=== PATIENT | male | born 1990 | race Caucasian/White ===

== ENCOUNTER 2020-06-20 08:39 | Emergency (ER) | payer SELFPAY ==
[2020-06-20] VITALS (19 sets, daily range): BP systolic 155–184; BP diastolic 64–125; PULSE 94; RESP 18; TEMP 36.5; O2SAT 96–100
--- NOTE | ~2020-06-20 | XR_ITS ---
EXAMINATION: XR hip LT min 2V DATE: 06/20/2020 10:17 INDICATION: Left hip pain. TECHNIQUE: 2 views of left hip were obtained. COMPARISON: None. FINDINGS: Bone alignment is normal. No fracture. There is mild left hip osteoarthritis. IMPRESSION: 1. Mild left hip osteoarthritis. Reviewed, dictated and finalized at location A.
--- NOTE | 2020-06-20 10:09 | ED.LOWEXIN ---
HPI - Extremity Injury (Lower) General Chief Complaint: Back Pain/Injury Stated Complaint: back/hip pain Time Seen by Provider: 06/20/20 10:02 Source: patient Mode of arrival: ambulatory Limitations: no limitations History of Present Illness HPI Narrative: Patient presents with left hip pain. He has had chronic left hip pain for years. In the last couple days is gotten worse. He has no limitation in rotation. The pain is worse going from a sitting to a standing position. After he has been on it for a while the pain decreased. His mother has severe joint arthritis. He has not seen an orthopedic surgeon. He has never had a steroid shot in his hip. He has not been sick with cough cold fever or throwing up or diarrhea. He judges his hip pain is 7. His surgeries include a pin in the left hand, right elbow fracture. He does smoke. 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 Onset (ago): day(s) Injury: Left: hip Type of Injury: other (No new injury) Severity: moderate Severity scale (1-10): 7 Relieving factors: immobilization Exacerbating factors: weight bearing Other symptoms: other (Left iliosacral pain) Treatments prior to arrival: other (Gabapentin) Related Data Home Medications Medication Instructions Recorded Confirmed gabapentin 800 mg PO BID 06/20/20 Allergies Allergy/AdvReac Type Severity Reaction Status Date / Time No Known Drug Allergies Allergy Mild Verified 07/07/15 09:20 Review of Systems Review of Systems: Narrative: CONSTITUTIONAL: Denies fever, chills, or sweats. ENT: Denies rhinorrhea, congestion, sore throat, or otalgia. CARDIOVASCULAR: Denies chest pain, palpitations, or edema. RESPIRATORY: Denies cough or dyspnea. GASTROINTESTINAL: Denies abdominal pain, nausea, vomiting, or diarrhea. MUSCULOSKELETAL: He has low back pain, and left hip pain. NEUROLOGIC: Denies headache, numbness, or weakness. All systems reviewed & are unremarkable except as noted in HPI and below PMFSH Past Medical History Medical History (Updated 06/20/20 @ 11:20 by Kaity Philip MD) Hip pain, left Surgical History Surgical History (Updated 06/20/20 @ 10:13 by Kaity Philip MD) History of elbow surgery History of hand surgery Social History Social History (Updated 06/20/20 @ 10:14 by Kaity Philip MD) Smoking status: Current every day smoker Gender identity (if verbalized by the patient): Male Exam Narrative: Exam Narrative: GENERAL: Well-appearing, well-nourished, and in no acute distress. Overweight HEAD: Normocephalic, atraumatic. EYES: PERRLA and EOMI. ENT: Nares clear, no rhinorrhea or epistaxis. Mucous membranes moist. NECK: Supple. CHEST: Clear to auscultation. No respiratory distress. HEART: Regular rate and rhythm. No murmur heard. Normal peripheral pulses. ABDOMEN: Soft, nontender, nondistended, normal active bowel sounds. EXTREMITIES: Normal range of motion. No edema. SKIN: Warm, dry, no rash. NEURO: No focal deficits. Alert and oriented x3. PSYCH: Normal mood and affect. Course Reevaluation(s) Reevaluation #1: Patient feels better with the pain pill. He previously had the gabapentin he is not on any medications now. I will refill his gabapentin and give him lisinopril for his hypertension. I recommend he sees an orthopedic surgeon for possible steroid injection and ongoing care. I also recommend he see a primary care physician for his blood pressure. Date: 06/20/20 Time: 11:21 Vital Signs Vital signs: Vital Signs Blood Pressure 184/125 H 06/20/20 08:45 Pulse Oximetry 100 06/20/20 08:45 Temperature 97.7 F 06/20/20 08:48 Pulse Rate 94 06/20/20 08:48 Respiratory Rate 18 06/20/20 08:48 Blood Pressure 155/103 H 06/20/20 10:01 Pulse Oximetry 98 06/20/20 11:00 MDM - Extremity Injury (Lower) Medical Records Attestation: I reviewed the patient's medical records. Discharge Plan Discharge Clinical Impression: Hip pain, left
[2020-06-20] MEDS: oxyCODONE/ACETAMINOPHEN 5-325 MG TABLET 1 TABLET PO (10:25)
== END 2020-06-20 11:42 | disposition home or self-care (01) ==
PROVIDERS: Emergency Provider Emergency Medicine
DX: M16.12 Unilateral primary osteoarthritis, left hip (principal); I10 Essential (primary) hypertension; F17.200 Nicotine dependence, unspecified, uncomplicated
CPT/HCPCS: 73502; 99283; A9270

== ENCOUNTER 2023-02-18 10:30 | Emergency (ER) | payer SELFPAY ==
--- NOTE | 2023-02-18 10:35 | PC.NURSE ---
EPI given at this time.
--- NOTE | 2023-02-18 10:38 | PC.NURSE ---
EPI given at this time.
--- NOTE | 2023-02-18 10:40 | PC.NURSE ---
ENT Dr Hurley at bedside to eval mass in throat.
--- NOTE | 2023-02-18 10:41 | PC.NURSE ---
EPI given via IO, CPR continued.
--- NOTE | 2023-02-18 10:42 | PC.NURSE ---
anesthesia at bedside w/ Dr Hurley and Dr Espinosa
--- NOTE | 2023-02-18 10:43 | PC.NURSE ---
Pt intubated w/ 6.0 tube, positive color change CPR continued EPI given
--- NOTE | 2023-02-18 10:45 | PC.NURSE ---
ET tube removed, second attempt for intubation at this time
--- NOTE | 2023-02-18 10:46 | PC.NURSE ---
Addendum entered by Marium Bills RN 02/18/23 10:47: unsuccessful intubation w/ discussing alternate airway Original Note: Pt given EPI at this time. Holding CPR for attempted intubation efforts. Pt has successful intubation w/ positive color change, size 6.0 tube.
--- NOTE | 2023-02-18 10:47 | PC.NURSE ---
CPR continued, pt remains unresponsive Attempting Quicktrach at this time per Dr Hurley at bedside.
--- NOTE | 2023-02-18 10:49 | PC.NURSE ---
EPI given at this time.
--- NOTE | 2023-02-18 10:52 | PC.NURSE ---
Pt given EPI Holding CPR for pulse check Asystole, CPR continued
--- NOTE | 2023-02-18 10:55 | PC.NURSE ---
EPI given at this time, CPR continued
--- NOTE | 2023-02-18 10:58 | PC.NURSE ---
Pt given EPI at this time, pt remains in asystole, CPR continued.
--- NOTE | 2023-02-18 11:00 | PC.NURSE ---
pulse check, HR 85 on monitor, attempting to Doppler a pulse CPR stopped for check, pt is in PEA CPR continued EPI given at this time
--- NOTE | 2023-02-18 11:02 | PC.NURSE ---
family (pts mother) in ED waiting room, discussed not stopping efforts until pts arrives, CPR continued
--- NOTE | 2023-02-18 11:03 | PC.NURSE ---
Pulse check, asystole CPR continued
--- NOTE | 2023-02-18 11:05 | PC.NURSE ---
EPI given at this time CPR continued EDP remains at bedside
--- NOTE | 2023-02-18 11:06 | PC.NURSE ---
pulse check, asystole, CPR continued
--- NOTE | 2023-02-18 11:08 | PC.NURSE ---
EPI given CPR continued
--- NOTE | 2023-02-18 11:11 | PC.NURSE ---
EPI given at this time, CPR continued
--- NOTE | 2023-02-18 11:14 | PC.NURSE ---
EPI given at this time, CPR continued
--- NOTE | 2023-02-18 11:14 | PC.NURSE ---
Family at bedside at this time, CPR is continued w/ Dr Espinosa at bedside, RESP at bedside.
--- NOTE | 2023-02-18 11:17 | PC.NURSE ---
CPR continued, family at bedside
--- NOTE | 2023-02-18 11:17 | PC.NURSE ---
CPR stopped per EDP. Family remains at bedside. Time of 1118.
--- NOTE | 2023-02-18 11:30 | PC.NURSE ---
Jillian from [facility] coroners office notified. states will probably have to send someone out.
--- NOTE | 2023-02-18 12:27 | PC.NURSE ---
Called [facility] to notify them of . They asked for us call them back when polymer materials consultant is done.
--- NOTE | 2023-02-18 12:28 | PC.NURSE ---
cancer genetic counselor here to examine pt
--- NOTE | 2023-02-18 12:42 | ED_ITS ---
HPI - CPR General Chief Complaint: Cardiac Arrest/CPR Stated Complaint: resp arrest Time Seen by Provider: 02/18/23 11:19 History of Present Illness HPI narrative: Pt presents via EMS in full arrest CPR in progress. Per EMS pt was spitting out saliva and in respiratory distress and they loaded him on the cart and he went into cardiac arrest. They started CPR and attempted airway but were unable to visualize cords due to mass or tissue. Pt had received several epi in route. estimated time of arrest 1006. Related Data Home Medications Medication Instructions Recorded Confirmed gabapentin 800 mg tablet 800 mg PO BID 06/20/20 Allergies Allergy/AdvReac Type Severity Reaction Status Date / Time No Known Drug Allergies Allergy Mild Verified 07/07/15 09:20 Review of Systems Review of Systems: ROS unobtainable: Yes unobtainable due to medical condition PMFSH Past Medical History Medical History (Updated 02/18/23 @ 12:57 by Martín Espinosa III, DO) Hip pain, left Surgical History Surgical History (Updated 06/20/20 @ 10:13 by Kaity Philip MD) History of elbow surgery History of hand surgery Social History Social History (Updated 06/20/20 @ 10:14 by Kaity Philip MD) Smoking status: Current every day smoker Gender identity (if verbalized by the patient): Male Exam Const: Nutritional Appearance: obese Other: pt in full arrest, no pulse no respiratory effort HENMT: Teeth and gingiva: dentition normal Neck: Other: short neck Resp: Other: coarse bs with bagged resp no spontaneous effort Cardio: Other: no pulse Skin: General skin exam: pallor Extrem: General: no pedal edema Course Course Emergency Course: On arrival with cpr in progress. Pt in asystole, CPR continued and acls protocol continued with epi given per acls protocol. Called ENT and anesthesia on arrival due to potential for airway and extremely difficult airway. Attempted intubation with glide scope and bougie and 6.0 ETT. unable to visualize cords due to mass or airway edema above cords. ENT and aneshesia attempted as well without success. LMA applied and pt was ventilated well with LMA. ENT not able to crich due to inability to identify landmarks. Since ventilating at this point but still in asystole, decision made if able to rescuscitate will take to OR. Unfortunately other than a very brief episode of PEA, the pt remained asystolic. Family notified and CPR continued until fiancee arrived. Family came to room and asked to stop CPR. Code called. For times and medication doses and time see code sheet. Critical Care Time Critical Care Time Critical Care Time: Yes Total Critical Care Time: 60 Discharge Plan Discharge Clinical Impression: Cardiac arrest, Acute airway obstruction Patient Disposition: Condition: Critical Prescriptions: No Action gabapentin 800 mg Tablet 800 mg PO BID gabapentin 300 mg capsule 300 mg PO TID Qty: 90 0RF naproxen sodium [Anaprox DS] 550 mg tablet 550 mg PO BID PRN (Reason: pain) Qty: 30 0RF lisinopril 10 mg tablet 10 mg PO DAILY Qty: 30 2RF Follow-up/Referrals: PHYSICIAN,HEATING AND COOLING SYSTEMS ENGINEER [Primary Care Provider] -
--- NOTE | 2023-03-27 10:33 | WPDPROCEDUR ---
Procedures Other Procedures Procedure 1: Other Procedure: Laryngoscopy with glide scope. I placed a glide scope was not able to directly view the larynx secondary to diffuse edema/ angioedema, endotracheal tube was not able to be placed in the patient's airway , anesthesia then took over and was able to place LMA successfully, patient was able to be ventilated through this, again the patient had no pulse at this time decision was made to not perform emergent tracheostomy until return of pulse.
== END 2023-02-18 14:15 | disposition expired ==
PROVIDERS: Emergency Provider Emergency Medicine
DX: I46.9 Cardiac arrest, cause unspecified (principal); J98.8 Other specified respiratory disorders; F17.200 Nicotine dependence, unspecified, uncomplicated
CPT/HCPCS: 31500; 92950; 99291; J0171